=== PATIENT | female | born 1945 | race Caucasian/White ===

== ENCOUNTER 2017-07-16 07:01 | Day surgery (SDC) | payer MEDICARE, OTHER ==
[2017-07-16] MEDS ORDERED: fentaNYL 100 MCG/2 ML SDV ONE (07:24)
[2017-07-16] MEDS ORDERED: Midazolam 1 MG/ML 2 ML SDV ONE (07:24)
[2017-07-16] MEDS ORDERED: Propofol 200 MG/20 ML SDV ONE (07:24)
[2017-07-16] MEDS ORDERED: Lactated Ringers 1,000 ML IV SCH (07:30)
[2017-07-16 09:48] VITALS: BP 107/53
--- NOTE | 2017-07-16 10:26 | OR ---
DATE OF PROCEDURE: 07/16/2017 PREOPERATIVE DIAGNOSIS: History of colon polyps. POSTOPERATIVE DIAGNOSIS: Sessile proximal right colon polyp and a small polyp at 30 cm from the anal verge. PROCEDURE: Colonoscopy to the cecum with biopsy resection of polyps x 2. SURGEON: Lex Hernandes MD. ANESTHESIA: IV anesthesia with monitored anesthesia care. INDICATION: This 71-year-old white female is referred for a colonoscopy because of a history of colon polyps. I counseled her for the procedure, including risks and alternatives, and she gave her informed consent to proceed. PROCEDURE IN DETAIL: The patient was placed in the left lateral decubitus position. IV anesthesia was administered by the Anesthesia Service. Time-out was held. A rectal exam was performed, which was unremarkable. The flexible video Olympus colonoscope was introduced through her anus, up her rectum, and out her colon all the way to the cecum. Once the cecum was reached, the scope was slowly withdrawn, examining the mucosa throughout. In the proximal right colon just distal to the ileocecal valve, we saw a sessile polyp, this was a fairly small polyp. We removed this with the biopsy forceps. The scope was then withdrawn further with no other lesions noted until we reached 30 cm from the anal verge. Here, a small polyp was seen and removed with the biopsy forceps. The scope was brought back into the rectum, where it was retroflexed. The distal rectum appeared unremarkable. The scope was straightened and removed. She tolerated the procedure well. Lex Hernandes MD /[id number]
== END 2017-07-16 10:00 | disposition home or self-care (01) ==
LOC: JP.SDS 07:01
PROVIDERS: ATTEND Surgery
DX: Z12.11 Encounter for screening for malignant neoplasm of colon (principal); D12.6 Benign neoplasm of colon, unspecified; I12.9 Hypertensive chronic kidney disease with stage 1 through stage 4 chronic kidney disease, or unspecified chronic kidney disease; N18.9 Chronic kidney disease, unspecified; F17.200 Nicotine dependence, unspecified, uncomplicated; Z86.010 Personal history of colon polyps
CPT/HCPCS: 45380; 88305; J2250; J2704; J3010; J7120

== ENCOUNTER 2018-08-12 08:32 | Day surgery (SDC) | payer MEDICARE, OTHER ==
[2018-08-12] MEDS ORDERED: Sodium Chloride 0.9% 1,000 ML IV SCH (09:00)
[2018-08-12] MEDS ORDERED: Propofol 200 MG/20 ML SDV ONE (09:18)
[2018-08-12] MEDS ORDERED: fentaNYL 100 MCG/2 ML SDV ONE (09:18)
[2018-08-12] MEDS ORDERED: Lactated Ringers 1,000 ML IV SCH (09:45)
[2018-08-12 11:19] VITALS: BP 98/55
--- NOTE | 2018-08-13 07:32 | OR ---
DATE OF PROCEDURE: 08/12/2018 PREOPERATIVE DIAGNOSIS: History of tubular adenomas. POSTOPERATIVE DIAGNOSES: 1. Small colon polyp at the ileocecal valve. 2. History of tubular adenomas. PROCEDURE PERFORMED: Colonoscopy to the cecum with biopsy resection of small colon polyp at the ileocecal valve. SURGEON: Lex Hernandes MD ANESTHESIA: IV anesthesia with monitored anesthesia care. INDICATION: This 72-year-old white female is referred for a colonoscopy. She has a history of tubular adenomas. Her last colonoscopic exam she says was done a year ago. I counseled her for the procedure, including risks and alternatives, and she gave her informed consent to proceed. DESCRIPTION OF PROCEDURE: The patient was placed in the left lateral decubitus position. IV anesthesia was administered by the Anesthesia Service. Time-out was held. A rectal exam was performed, which was unremarkable. The flexible video Olympus colonoscope was introduced through her anus, up her rectum, and out her colon all the way to the cecum. Once the cecum was reached, the scope was slowly withdrawn, examining the mucosa throughout. Adjacent to the ileocecal valve, we saw a small polyp, which was removed with several bites of biopsy forceps. The scope was then withdrawn further with no other lesions noted. The scope was retroflexed in the rectum with the distal rectum appearing unremarkable. The scope was straightened and removed. She tolerated the procedure well. Lex Hernandes MD /[id number]
== END 2018-08-12 11:10 | disposition home or self-care (01) ==
LOC: JP.SDS 08:32
PROVIDERS: ATTEND Surgery
DX: Z12.11 Encounter for screening for malignant neoplasm of colon (principal); D12.0 Benign neoplasm of cecum; I12.9 Hypertensive chronic kidney disease with stage 1 through stage 4 chronic kidney disease, or unspecified chronic kidney disease; N18.9 Chronic kidney disease, unspecified; F17.200 Nicotine dependence, unspecified, uncomplicated; Z86.010 Personal history of colon polyps
CPT/HCPCS: 45380; J2704; J3010; J7120; 88305

== ENCOUNTER 2022-05-30 08:20 | Day surgery (SDC) | payer MEDICARE ==
[2022-05-30] MEDS ORDERED: Propofol 200 MG/20 ML SDV ONE (08:21)
[2022-05-30] MEDS ORDERED: fentaNYL 50 MCG/ML SDV ONE (08:21)
[2022-05-30] MEDS ORDERED: Lactated Ringers 1,000 ML IV SCH (09:00)
[2022-05-30] MEDS ORDERED: Sodium Chloride 0.9% 1,000 ML IV SCH (09:00)
[2022-05-30 10:41] VITALS: BP 127/64; PULSE 64
== END 2022-05-30 10:52 | disposition home or self-care (01) ==
LOC: JP.SDS 08:20
PROVIDERS: ATTEND Family Medicine
DX: Z12.11 Encounter for screening for malignant neoplasm of colon (principal); D12.0 Benign neoplasm of cecum; D12.5 Benign neoplasm of sigmoid colon; M81.0 Age-related osteoporosis without current pathological fracture; I12.9 Hypertensive chronic kidney disease with stage 1 through stage 4 chronic kidney disease, or unspecified chronic kidney disease; N18.9 Chronic kidney disease, unspecified; D63.1 Anemia in chronic kidney disease; Z86.010 Personal history of colon polyps; Z79.899 Other long term (current) drug therapy
CPT/HCPCS: 45380; 45385; 88305; J2704; J3010; J7120

== ENCOUNTER 2025-06-12 09:03 | Day surgery (SDC) | payer MEDICARE ==
[~2025-06-12 09:03] MED LIST: Propofol 200 MG/20 ML SDV ONE; fentaNYL 50 MCG/ML SDV ONE
[2025-06-12] MEDS: Lactated Ringers 1,000 ML IV SCH (09:45)
[2025-06-12 12:35] VITALS: BP 146/71; PULSE 82
== END 2025-06-12 13:00 | disposition home or self-care (01) ==
LOC: JP.SDS 09:03
PROVIDERS: ATTEND Surgery
DX: D12.4 Benign neoplasm of descending colon (principal); K31.A0 Gastric intestinal metaplasia, unspecified; K31.89 Other diseases of stomach and duodenum; K63.89 Other specified diseases of intestine; K92.2 Gastrointestinal hemorrhage, unspecified; K31.7 Polyp of stomach and duodenum; I10 Essential (primary) hypertension; E78.00 Pure hypercholesterolemia, unspecified; Z79.899 Other long term (current) drug therapy
CPT/HCPCS: 43239; 45385; J2704; J3010; J7120; 00813-QZ; 88305; 88344